=== PATIENT | female | born 1990 | race American Indian/Alaskan Native ===

== ENCOUNTER 2017-09-22 02:38 | Emergency (ER) | payer OTHER ==
[2017-09-22 03:15] LABS: Basophils # (Auto) 0.1 K/mm3 (0.0-0.1); Basophils % (Auto) 0.5 % (0.0-1.8); Eosinophils # (Auto) 0.3 K/mm3 (0.0-0.4); Eosinophils % (Auto) 2.7 % (0.0-4.3); Hematocrit 35.1 % (30.3-42.9); Hemoglobin 12.2 gm/dl (10.1-14.3); Lymphocytes # (Auto) 1.3 K/mm3 (1.2-5.4); Lymphocytes % (Auto) 12.6 % (13.4-35.0); Mean Corpuscular HGB Conc 35 % (30-34); Mean Corpuscular Hemoglobin 32 pg (28-32); Mean Corpuscular Volume 92 fl (79-97); Monocytes % (Auto) 9.9 % (0.0-7.3); Platelet Count 258 K/mm3 (140-440); Red Blood Count 3.82 M/mm3 (3.65-5.03); Red Cell Distribution Width 13.3 % (13.2-15.2)
[2017-09-22 03:35] LABS: Alanine Aminotransferase 16 units/L (7-56); Albumin 3.3 g/dL (3.9-5); BUN/Creatinine Ratio 18; Blood Urea Nitrogen 7 mg/dL (7-17); Calcium 8.2 mg/dL (8.4-10.2); Hemolysis Index 3
[2017-09-22] MEDS ORDERED: TYLENOL ONE (03:54)
[2017-09-22] MEDS ORDERED: TYLENOL PO ONE (03:56)
[2017-09-22 07:51] LABS: Amorphous Crystals,Urine Few; Bacteria,Urine 2+ /HPF (Negative); Bilirubin,Urine NEG (Negative); Blood,Urine NEG (Negative); Color,Urine Yellow (Yellow); Mucus,Urine FEW /HPF; Protein,Urine <15 mg/dL mg/dL (Negative); Urobilinogen,Urine < 2.0 mg/dL (<2.0)
--- NOTE | 2017-09-22 08:28 | Emergency Department Report ---
ED General Adult HPI - General Chief complaint: Abdominal Pain Stated complaint: ABDOMINAL PAIN 18 WEEKS Time Seen by Provider: 09/22/17 08:27 Source: patient Mode of arrival: Ambulatory Limitations: No Limitations - History of Present Illness Initial comments: 26-year-old female states that she is having pain related to a large uterine fibroid. She's been previously prescribed Percocet by her HOME CARE AIDE physician in [place]. She is 18-19 weeks . She said no fever or chills or urinary symptoms. She has been having pain similar in the right lower quadrant of her abdomen related to this fibroid. She denies vomiting or nausea. She's had no vaginal bleeding. This is her first . -: Gradual, week(s) Location: abdomen, right Quality: aching Consistency: intermittent Improves with: none Worsens with: none Associated Symptoms: denies other symptoms - Related Data Previous Rx's Medication Instructions Recorded Last Taken Type HYDROcodone/ACETAMINOPHEN [[place] 1 each PO Q6H #14 tablet 09/22/17 Unknown Rx 7.5-325 Tablet] Nitrofurantoin Monohyd/M-Cryst 100 mg PO BID #14 capsule 09/22/17 Unknown Rx [Macrobid 100 mg Capsule] Allergies Allergy/AdvReac Type Severity Reaction Status Date / Time No Known Allergies Allergy Unverified 09/22/17 02:50 ED Review of Systems ROS: Stated complaint: ABDOMINAL PAIN 18 WEEKS Other details as noted in HPI Constitutional: denies: chills, fever Eyes: denies: eye pain, eye discharge, vision change ENT: denies: ear pain, throat pain Respiratory: denies: cough, shortness of breath, wheezing Cardiovascular: denies: chest pain, palpitations Endocrine: no symptoms reported Gastrointestinal: as per HPI, abdominal pain. denies: nausea, diarrhea Genitourinary: denies: urgency, dysuria, discharge Musculoskeletal: denies: back pain, joint swelling, arthralgia Skin: denies: rash, lesions Neurological: denies: headache, weakness, paresthesias Psychiatric: denies: anxiety, depression Hematological/Lymphatic: denies: easy bleeding, easy bruising ED Past Medical Hx - Past Medical History Previous Medical History?: No - Surgical History Past Surgical History?: Yes Additional Surgical History: cleft lip and palate - Social History Smoking Status: Never Smoker Substance Use Type: None - Medications Home Medications: Home Medications Medication Instructions Recorded Confirmed Last Taken Type HYDROcodone/ACETAMINOPHEN [[place] 1 each PO Q6H #14 tablet 09/22/17 Unknown Rx 7.5-325 Tablet] Nitrofurantoin Monohyd/M-Cryst 100 mg PO BID #14 capsule 09/22/17 Unknown Rx [Macrobid 100 mg Capsule] ED Physical Exam - General Limitations: No Limitations General appearance: alert, in no apparent distress - Head Head exam: Present: atraumatic, normocephalic - Eye Eye exam: Present: normal appearance, PERRL, EOMI. Absent: scleral icterus - ENT ENT exam: Present: mucous membranes moist - Neck Neck exam: Present: normal inspection - Respiratory Respiratory exam: Present: normal lung sounds bilaterally. Absent: respiratory distress - Cardiovascular Cardiovascular Exam: Present: regular rate, normal rhythm. Absent: systolic murmur, diastolic murmur, rubs, gallop - GI/Abdominal GI/Abdominal exam: Present: soft, tenderness (mild tenderness apparently associated with palpable uterine asymmetry/fibroid), normal bowel sounds, other (abdomen is otherwise soft and nontender). Absent: distended, guarding, rebound , rigid - Extremities Exam Extremities exam: Present: normal inspection - Back Exam Back exam: Present: normal inspection - Neurological Exam Neurological exam: Present: alert, oriented X3, CN II-XII intact. Absent: motor sensory deficit - Psychiatric Psychiatric exam: Present: normal affect, normal mood - Skin Skin exam: Present: warm, dry, intact, normal color. Absent: rash ED Course Vital Signs 09/22/17 09/22/17 09/22/17 02:39 04:18 08:01 Temperature 97.9 F Pulse Rate 92 H Respiratory 16 18 Rate Blood Pressure 115/76 O2 Sat by Pulse 100 100 Oximetry 09/22/17 09/22/17 09/22/17 08:02 08:15 08:25 Temperature Pulse Rate Respiratory 20 18 Rate Blood Pressure 106/66 O2 Sat by Pulse 100 Oximetry 09/22/17 09/22/17 08:30 09:26 Temperature Pulse Rate Respiratory 18 Rate Blood Pressure 100/62 O2 Sat by Pulse 100 Oximetry - Reevaluation(s) Reevaluation #1: Patient is given analgesia which was effective. She was ready for discharge. Her ultrasound did not show anything new. She had 2+ bacteria in the urine. Therefore the urine will be cultured and she will be given Macrobid. However, she did not have much pyuria. She is referred back to her HOME CARE AIDE physician in [place]. 09/22/17 10:49 ED Medical Decision Making - Lab Data Result diagrams: 09/22/17 03:06 09/22/17 03:06 Laboratory Results - last 24 hr 09/22/17 09/22/17 09/22/17 03:06 03:06 03:06 WBC 10.6 RBC 3.82 Hgb 12.2 Hct 35.1 MCV 92 MCH 32 MCHC 35 H RDW 13.3 Plt Count 258 Lymph % (Auto) 12.6 L Benzie % (Auto) 9.9 H Eos % (Auto) 2.7 Baso % (Auto) 0.5 Lymph # 1.3 Benzie # 1.0 H Eos # 0.3 Baso # 0.1 Seg Neutrophils % 74.3 H Seg Neutrophils # 7.9 H Sodium 134 L Potassium 3.8 Chloride 98.4 Carbon Dioxide 25 Anion Gap 14 BUN 7 Creatinine 0.4 L Estimated GFR > 60 BUN/Creatinine Ratio 18 Glucose 83 Calcium 8.2 L Total Bilirubin 0.20 AST 13 ALT 16 Alkaline Phosphatase 70 Total Protein 6.6 Albumin 3.3 L Albumin/Globulin Ratio 1.0 HCG, Quant 68978 H Urine Color Urine Turbidity Urine pH Ur Specific [place] Urine Protein Urine Glucose (UA) Urine Ketones Urine Blood Urine Nitrite Urine Bilirubin Urine Urobilinogen Ur Leukocyte Esterase Urine WBC (Auto) Urine RBC (Auto) U Epithel Cells (Auto) Urine Bacteria (Auto) Amorphous Crystals Urine Mucus 09/22/17 07:07 WBC RBC Hgb Hct MCV MCH MCHC RDW Plt Count Lymph % (Auto) Benzie % (Auto) Eos % (Auto) Baso % (Auto) Lymph # Benzie # Eos # Baso # Seg Neutrophils % Seg Neutrophils # Sodium Potassium Chloride Carbon Dioxide Anion Gap BUN Creatinine Estimated GFR BUN/Creatinine Ratio Glucose Calcium Total Bilirubin AST ALT Alkaline Phosphatase Total Protein Albumin Albumin/Globulin Ratio HCG, Quant Urine Color Yellow Urine Turbidity Clear Urine pH 7.0 Ur Specific [place] 1.013 Urine Protein <15 mg/dl Urine Glucose (UA) Neg Urine Ketones Neg Urine Blood Neg Urine Nitrite Neg Urine Bilirubin Neg Urine Urobilinogen < 2.0 Ur Leukocyte Esterase Neg Urine WBC (Auto) 1.0 Urine RBC (Auto) 2.0 U Epithel Cells (Auto) 2.0 Urine Bacteria (Auto) 2+ Amorphous Crystals Few Urine Mucus Few Critical care attestation.: If time is entered above; I have spent that time in minutes in the direct care of this critically ill patient, excluding procedure time. ED Disposition Clinical Impression: with 19 completed weeks gestation, Leiomyoma in , uterine, antepartum Abdominal pain Qualifiers: Abdominal location: right lower quadrant Qualified Code(s): R10.31 - Right lower quadrant pain UTI (urinary tract infection) Qualifiers: Urinary tract infection type: site unspecified Hematuria presence: without hematuria Qualified Code(s): N39.0 - Urinary tract infection, site not specified Disposition: TO HOME OR SELFCARE Is pt being admited?: No Does the pt Need Aspirin: No Condition: Stable Instructions: Abdominal Pain (ED), Uterine Fibroids (ED), Urinary Tract Infection in Women (ED) Additional Instructions: There was a possibility of . Therefore a urine culture was done. This takes 2-3 days to resolve. Your HOME CARE AIDE doctor can follow up on the result. Until then I am going to place you on an antibiotic. We did not find anything new beyond your previously diagnosed fibroid today. Rx antibiotic and something for pain. Return any acute change or problems. Follow-up with your OB doctor as above. Prescriptions: HYDROcodone/ACETAMINOPHEN [[place] 7.5-325 Tablet] 1 each PO Q6H #14 tablet Nitrofurantoin Monohyd/M-Cryst [Macrobid 100 mg Capsule] 100 mg PO BID #14 capsule Referrals: XIMENA CANTRELL [Other] - 3-5 Days usual, HOME CARE AIDE [Other] - 2-3 Days Time of Disposition: 10:53
[2017-09-22] MEDS ORDERED: NACL 0.9% 1000 ML 1,000 ML IV ONE (08:29)
[2017-09-22] MEDS ORDERED: ZOFRAN IV ONE (08:33)
[2017-09-22] MEDS ORDERED: MORPHINE IV ONE (08:33)
--- NOTE | 2017-09-22 09:50 | Ultrasound Report ---
OBSTETRICAL ULTRASOUND: 09/22/17 07:38:00 CLINICAL: with abdominal pain. COMPARISON:None. Gestation: [place] Position: Cephalic Amniotic Fluid: Normal Placenta: Fundal and posterior with no previa. Placental Grade: 0 Heart Rate: 161 BPM Cervical length: 3.7 cm (Normal > 3 cm) It is too early for a anatomical survey NEUROANATOMY VISUALIZED: Choroid Plexus Cisterna Magnum Cerebellum Lateral Ventricle ANATOMY VISUALIZED: Stomach Kidneys Bladder Diaphragm 4 Chamber Heart Heart 3 Vessel Cord Abd. Cord Insert SPINE VISUALIZED: AP Limited spine due to position BPD: 4.5 cm = 19 w 4 d HC: 16.4 cm = 19 w 1 d AC: 13.5 cm = 19 w 0 d FL: 2.7 cm = 18 w 2 d HC/AC Ratio: 1.22 Cephalic Index: 81.6 Estimated Weight: 256 grams LMP: Unknown Uterine leiomyomata. The largest fibroid measures 6.1 x 4.9 x 3.2 cm and is located subserosal in the anterior lower uterine segment adjacent to the urinary bladder. An anterior intramural fundal fibroid measures 4.7 x 3.8 x 2.7 cm and a second fundal intermural fibroid measures 3.5 x 2.7 x 2.8 cm. An anterior uterine body intramural fibroid measures 4.0 x 2.5 x 4.0 cm. Ovaries were not identified. IMPRESSION: Single live intrauterine fetus at 19 weeks gestation based on ultrasound and clinical dating. Large uterine leiomyomata are likely source of abdominal pain. Clinical age = 18 w 6 d EDC: 02/17/18 US Gest. Age = 19 w 0 d EDC: 02/16/18
[2017-09-22 11:39] VITALS: BP 108/57
== END 2017-09-22 11:05 | disposition home or self-care (01) ==
LOC: ED 02:38
DX: O34.12 Maternal care for benign tumor of corpus uteri, second trimester (principal); O23.42 Unspecified infection of urinary tract in pregnancy, second trimester; Z3A.19 19 weeks gestation of pregnancy
CPT/HCPCS: 36415; 76805; 80053; 81001; 84702; 85025; 96361; 96374; 96375; 99284; J2270; J2405; J7030